=== PATIENT | female | born 1995 | race Hispanic/Latino ===

== ENCOUNTER 2024-04-07 18:01 | Emergency (ER) | payer SELFPAY ==
[~2024-04-07] VITALS: Ht 160 cm; Wt 59.0 kg
[2024-04-07] MEDS ORDERED: ASPIRIN 81 MG CHEW PO ONE (22:00)
[2024-04-07] MEDS ORDERED: NITROGLYCERIN 0.4 MG SUBL SL PRN (22:00)
[2024-04-07 22:01] LABS: BASOPHILS 1.1 % (0-2); EOSINOPHILS 2.8 % (0-6); HEMATOCRIT 39.3 % (35.0-50.0); HEMOGLOBIN 13.3 g/dL (12.0-18.0); LYMPHOCYTES 38.5 % (24-44); MCH 31.5 (27-36); MCHC 33.9 g/dl (30-36); MCV 92.8 fl (81-99); MONOCYTES 7.4 % (0-12); NEUTROPHILS 50.2 % (39-80); PLATELET COUNT 240 K/uL (140-440); RBC 4.24 M/ul (4.3-5.7); RDW 13.3 (10.5-15.0)
[2024-04-07 22:20] LABS: ALBUMIN 4.1 g/dL (3.4-5.0); ALBUMIN/GLOBULIN RATIO 0.95 (1.1-2.4); ALKALINE PHOSPHATASE 111 U/L (46-116); ALT (SGPT) 17 U/L (14-59); AST (SGOT) 12 U/L (15-37); BILIRUBIN, TOTAL 0.3 ng/dL (0.2-1.0); BUN/CREATININE RATIO 28.57 (6.0-28.6); CALCIUM 8.7 mg/dL (8.5-10.1); CARBON DIOXIDE 27 mmol/L (21-32); CHLORIDE 107 mmol/L (98-107); CREATININE, SERUM 0.63 mg/dL (0.55-1.02); GLOMERULAR FILTRATION RATE,EST 122 mL/min (>60); MAGNESIUM 2.2 mg/dL (1.8-2.4); PROTEIN, TOTAL 8.4 g/dL (6.4-8.2); UREA NITROGEN 18 mg/dL (7-18)
[2024-04-07 23:44] LABS: INFLUENZA B NAA NEGATIVE (NEGATIVE); RESPIRATORY SYNCYTIAL VIR NAA NEGATIVE (NEGATIVE)
[2024-04-08] MEDS ORDERED: KETOROLAC TROMETHAMINE 30 MG/ML VIAL IV ONE (00:30)
[2024-04-08] MEDS ORDERED: PROCHLORPERAZINE EDISYLATE 10 MG/2 ML VIAL IV ONE (00:30)
[2024-04-08] MEDS ORDERED: diphenhydrAMINE HCL 50 MG/ML VIAL IV ONE (00:30)
[2024-04-08 01:54] VITALS: BP 117/84
--- NOTE | 2024-04-08 14:05 | EKG ---
[facility] [address] [place], [place] [address] Signed Normal sinus rhythm Normal ECG No previous ECGs available Confirmed by Rambo Montero MD ([id number]) on 04/08/2024 2:05:27 PM Electronically Signed By: RAMBO MONTERO DO 04/08/24 1405 PATIENT NAME: JUAN CARLOS TORREZSARAH EATON Electrocardiogram DATE OF : [birth year] PHYSICIAN: RAMBO MONTERO DO REPORT #: [id number] REPORT IS CONFIDENTIAL AND NOT TO BE RELEASED WITHOUT AUTHORIZATION
== END 2024-04-08 01:55 | disposition home or self-care (01) ==
LOC: ED 18:01
PROVIDERS: Internal Medicine
DX: G43.909 Migraine, unspecified, not intractable, without status migrainosus (principal); I10 Essential (primary) hypertension
CPT/HCPCS: 36415; 71045; 80053; 83735; 84484; 84703; 85025; 87502; 93005; 93010; 96374; 96375; 99284-25; J0780; J1200; J1885; U0002

== ENCOUNTER 2024-11-05 16:51 | Emergency (ER) | payer OTHER ==
[~2024-11-05] VITALS: Ht 160 cm; Wt 61.4 kg
[2024-11-05] MEDS ORDERED: AMOX TR-K CLV1 EAC1 PO (18:04)
[2024-11-05] MEDS ORDERED: IBUPROFEN 600 MG TAB PO ONE (18:15)
[2024-11-05] MEDS ORDERED: AMOXICILLIN/CLAVULANATE K 875 MG HOME.PACK PO ONE (18:15)
[2024-11-05] MEDS ORDERED: ACETAMINOPHEN 500 MG TAB PO ONE (18:15)
[2024-11-05 18:17] VITALS: BP 136/94
== END 2024-11-05 18:19 | disposition home or self-care (01) ==
LOC: ED 16:51
DX: K08.89 Other specified disorders of teeth and supporting structures (principal); I10 Essential (primary) hypertension
CPT/HCPCS: 99282; A9270